=== PATIENT | female | born 1965 | race African-American/Black ===

== ENCOUNTER 2017-01-20 13:04 | Emergency (ER) | payer MEDICARE, MEDICAID ==
[~2017-01-20 13:04] MED LIST: ADULT ASPIRIN81 MG; ASPIR 8181 MG PO; ATORVASTATIN CA40 M1 PO; AUGMENTIN PO; AVALIDE 300-12.1 TAB; AVALIDE 300-251 TAB; AVANDAMET 4 MG/1 TAB; COLACE100 MG PO; DULCOLAX10 MG/SUPP RC; GLIPIZIDE10 M1 PO; GLIPIZIDE10 M2 PO; GLIPIZIDE10 MG; GLUCOPHAGE1000 M1 PO; GLUCOPHAGE1000 MG; GLUCOPHAGE500 MG PO; GLUCOTROL10 MG; LANTUS SOL100 UNIT/1 SC; LANTUS100 U/ML IM/SC; LANTUS100 UNITS/ SC; LASIX40 M1 PO; LEVAQUIN750 M1 PO; LISINOPRIL40 MG PO; LOPRESSOR50 MG; LYRICA100 MG/CAP PO; METOPROLOL TART25 MG PO; MILK OF MA400 MG/5 M PO; MILK OF MAGNESIA PO; MOTRIN800 MG PO; NAPRELAN500 M2 PO; NORCO 5/325 TAB1 TAB PO; NORCO 5/3251 TAB PO; NORVASC10 M2 PO; OMEPRAZOLE20 M3 PO; PEPCID20 MG PO; PERCOCET 5/3251 TAB PO; PLAVIX75 M1 PO; PREDNISONE20 MG PO; PRINIVIL20 M1 PO; PRINZIDE 20/251 TAB PO; PROAIR HFA8.5 GM INH; PROMETHAZINE-C118 ML PO; PROVENTIL17 GM IH; SENOKOT-S TABLE1 TAB PO; TOPROL XL25 M1 PO; TOPROL XL50 MG; WELLBUTRIN SR200 M2 PO; [UNRECOGNIZED DRUG - OTHER] PO
[2017-01-20] MEDS ORDERED: NORVASC5 M2 PO (13:16)
[2017-01-20] MEDS ORDERED: TYLENOL EXTRA500 M1 PO (13:16)
[2017-01-20] MEDS ORDERED: NAPROXEN250 M1 PO (13:17)
[2017-01-20 13:59] LABS: BASO % 0.3 % (0-2); EOS % 0.6 % (0-7); EOSINOPHIL ABSOLUTE COUNT 0.1 tho/cmm (0.0-0.7); HCT-HEMATOCRIT 43.9 % (34.0-49.0); IMMATURE GRANULOCYTES PERCENT 0.9 % (0-0.3); LYMPH % 27.2 % (20-45); LYMPH ABSOLUTE COUNT 3.1 tho/cmm (0.8-4.5); MCH (MEAN CORPUSCULAR HGB) 30.5 pg (28.0-32.0); MCHC MEAN CORPUSCULAR HGB CONC 34.2 % (32.0-36.0); MCV (MEAN CELL VOLUME) 89.4 fl (82.0-96.0); MEAN PLATELET VOLUME 10.9 cmc (9.4-12.4); MONO % 6.9 % (0-12); MONOCYTE ABSOLUTE COUNT 0.8 tho/cmm (0.0-1.2); NEUTROPHIL ABSOLUTE COUNT 7.4 tho/cmm (1.6-8.0); NEUTROPHIL-AUTOMATED 7.4 tho/cmm (1.6-8.0); NEUTROPHILS % 64.1 % (40-80); PLATELET COUNT 197 tho/cmm (150-450); RED BLOOD COUNT 4.91 mil/cmm (4.00-5.20); RED CELL DISTRIBUTION WIDTH 13.9 % (12.4-16.4); WHITE BLOOD COUNT 11.5 tho/cmm (4.0-10.0)
[2017-01-20] MEDS ORDERED: PROVENTIL HFA6.7 G1 INH (14:09)
[2017-01-20 14:17] LABS: ALB/GLOB RATIO 1.1 (0.8-2.0); ALKALINE PHOSPHATASE 97 U/L (33-138); ALT/SGPT 23 U/L (12-78); ANION GAP 15 mmol/L (0-20); AST/SGOT 15 U/L (10-40); BILIRUBIN,TOTAL 0.5 mg/dl (0-1.5); BLOOD UREA NITROGEN 14 mg/dl (6-24); CALCIUM 9.6 mg/dl (8.5-10.5); CARBON DIOXIDE-VENOUS 27 mmol/L (22-32); CHLORIDE 103 mmol/l (96-110); CREATININE 0.73 mg/dl (0.50-1.10); GLUCOSE 176 mg/dL (70-110); LIPASE 67 U/L (73-393); POTASSIUM 3.6 mmol/L (3.7-5.1); SODIUM 141 mmol/L (135-145); eGFR VALUE FOR BLACK >90 mL/Min
[2017-01-20] MEDS ORDERED: LOPRESSOR50 M1 PO (15:16)
[2017-01-20] MEDS ORDERED: REGLAN10 M2 PO (17:21)
== END 2017-01-20 18:10 ==
LOC: EDMED 13:04
PROVIDERS: Emergency Medicine
DX: D64.9 Anemia, unspecified (principal); R10.9 Unspecified abdominal pain; E11.9 Type 2 diabetes mellitus without complications; I25.10 Atherosclerotic heart disease of native coronary artery without angina pectoris; I10 Essential (primary) hypertension; E66.9 Obesity, unspecified; G47.33 Obstructive sleep apnea (adult) (pediatric); Z86.718 Personal history of other venous thrombosis and embolism; Z87.891 Personal history of nicotine dependence; Z79.4 Long term (current) use of insulin; Z79.899 Other long term (current) drug therapy
CPT/HCPCS: J1170; J1200; J2405; J7030; Q9967